=== PATIENT | male | born 1975 | race Two or more races ===

== ENCOUNTER 2020-05-23 08:16 | Outpatient (CLI) | payer OTHER | END 2020-05-23 08:28 | disposition home or self-care (01) | LOC: MRI 08:16 | PROVIDERS: ATTEND Surgery | DX: K80.80 Other cholelithiasis without obstruction (principal) | CPT/HCPCS: 74181 ==

== ENCOUNTER 2020-06-05 05:15 | Inpatient (IN) | payer OTHER ==
[~2020-06-05] VITALS: Ht 177.8 cm; Wt 77.1 kg
[2020-06-09] MEDS ORDERED: AMOX1TAB5 PO (10:59)
[2020-06-09] MEDS ORDERED: PROTONIX40 MG PO (11:00)
[2020-06-09] MEDS ORDERED: MULTIGEN PLUS1 EACH PO (11:01)
[2020-06-09] MEDS ORDERED: ULTRACET PO (11:02)
[2020-06-09] MEDS ORDERED: SURFAK240 M1 PO (11:05)
== END 2020-06-09 11:47 | disposition home or self-care (01) | DRG 416 ==
LOC: CIR.AMB 05:15 → O/R 10:27 → SURH 11:25 → CIR.AMB 12:00 → SURH 06-09 11:47
PROVIDERS: ADMIT Surgery; ATTEND Surgery
PROC: 0FJ44ZZ Inspection of Gallbladder, Percutaneous Endoscopic Approach (ICD-10-PCS; 2020-06-05)
PROC: 0FT40ZZ Resection of Gallbladder, Open Approach (ICD-10-PCS; principal; 2020-06-05 18:15)
DX: K80.00 Calculus of gallbladder with acute cholecystitis without obstruction (principal); K66.0 Peritoneal adhesions (postprocedural) (postinfection)

== ENCOUNTER 2020-06-26 07:31 | Outpatient (CLI) | payer OTHER ==
[~2020-06-26 07:31] MED LIST: AMOX1TAB5 PO; MULTIGEN PLUS1 EACH PO; PROTONIX40 MG PO; SURFAK240 M1 PO; ULTRACET PO
== END 2020-06-26 07:50 | disposition home or self-care (01) ==
LOC: MRI 07:31
PROVIDERS: ATTEND Surgery
DX: K80.80 Other cholelithiasis without obstruction (principal)
CPT/HCPCS: 74181